=== PATIENT | male | born 1980 | race Two or more races ===

== ENCOUNTER 2024-04-07 08:41 | Emergency (ER) | payer OTHER ==
[~2024-04-07] VITALS: Ht 175.3 cm; Wt 74.4 kg
[2024-04-07] MEDS ORDERED: KETOROLAC TROMETHAMINE 60 MG VIAL IM STA (10:33)
[2024-04-07] MEDS ORDERED: KETOROLAC TROMETHAMINE 60 MG VIAL IM ONE (10:49)
== END 2024-04-07 11:34 | disposition home or self-care (01) ==
LOC: ER 08:42
DX: R07.89 Other chest pain (principal)